=== PATIENT | female | born 1935 | race Caucasian/White ===

== ENCOUNTER 2017-08-29 06:26 | Inpatient (IN) | payer OTHER ==
[~2017-08-29] VITALS: Ht 152.4 cm; Wt 54.4 kg
[~2017-08-29 06:26] MED LIST: BONIVA150 MG PO; CALTRATE 600+D1 EACH PO; DILTIAZEM HCL10 GM; ELIQUIS5 MG PO; OMEPRAZOLE20 M1 PO; RESTORIL22.5 MG PO
== END 2017-09-01 11:45 | disposition home or self-care (01) | DRG 747 ==
LOC: CIR.AMB 06:26 → O/R 13:32 → OB/GYN 13:32
PROVIDERS: Obstetrics & Gynecology
PROC: 0UQF0ZZ Repair Cul-de-sac, Open Approach (ICD-10-PCS; 2017-08-29)
PROC: 0JQC0ZZ Repair Pelvic Region Subcutaneous Tissue and Fascia, Open Approach (ICD-10-PCS; 2017-08-29)
PROC: 0JQC0ZZ Repair Pelvic Region Subcutaneous Tissue and Fascia, Open Approach (ICD-10-PCS; principal; 2017-08-29 07:00)
DX: N81.3 Complete uterovaginal prolapse (principal)

== ENCOUNTER 2023-06-22 13:35 | Outpatient (CLI) | payer OTHER | END 2023-06-22 13:36 | disposition home or self-care (01) | LOC: NUCLEAR 13:35 | DX: M81.0 Age-related osteoporosis without current pathological fracture (principal) ==